=== PATIENT | female | born 1950 | race Caucasian/White ===

== ENCOUNTER 2016-06-07 01:31 | Emergency (ER) | payer OTHER ==
[2016-06-07 01:48] VITALS: TEMP 97.9
[2016-06-07 02:28] LABS: % IMMATURE GRANULYOCYTES 0.3 % (0.0-1.1); ABSOLUTE IMMATURE GRANULOCYTES 0.02 10^3/uL (0.00-0.10); ADD DIFF? NO; ADD MORPH? NO; ADD SCAN? NO; ATYPICAL LYMPHOCYTE FLAG 10 (0-99); FRAGMENT RBC FLAG 0 (0-99); HEMATOCRIT 40.8 % (38.0-47.0); HEMOGLOBIN 14.2 g/dL (12.6-16.3); LEFT SHIFT FLG 0 (0-99); LIPEMIA HEMOLYSIS FLAG 90 (0-99); MEAN CELL HEMOGLOBIN 32.6 pg (27.9-34.1); MEAN CELL HEMOGLOBIN CONCENTR. 34.8 g/dL (32.4-36.7); MEAN CELL VOLUME 93.6 fL (81.5-99.8); MEAN PLATELET VOLUME 10.1 fL (8.7-11.7); PLATELET CLUMPS FLAG 0 (0-99); PLATELET COUNT 243 10^3/uL (150-400); RED BLOOD CELL COUNT 4.36 10^6/uL (4.18-5.33); RED CELL DISTRIBUTION WIDTH 12.5 % (11.5-15.2)
--- NOTE | 2016-06-07 02:31 | CPEKG ---
Heart Rate: 78 RR Interval: 769 P-R Interval: 178 QRSD Interval: 94 QT Interval: 416 QTC Interval: 474 P [place]: 8 QRS [place]: -20 T Wave [place]: -4 EKG Severity - ABNORMAL ECG - EKG Impression: INCOMPLETE ANALYSIS DUE TO MISSING DATA IN PRECORDIAL LEAD(S) EKG Impression: SINUS RHYTHM EKG Impression: VENTRICULAR PREMATURE COMPLEX EKG Impression: LEFT VENTRICULAR HYPERTROPHY EKG Impression: NONSPECIFIC T ABNORMALITIES, INFERIOR LEADS Electronically Signed By: Franklin Worley 07-Jun-2016 06:56:00
[2016-06-07 02:33] LABS: ANION GAP 13 mEq/L (8-16); CALCIUM 10.1 mg/dL (8.5-10.4); CARBON DIOXIDE 27 mEq/l (22-31); CHLORIDE 103 mEq/L (97-110); CREATININE 0.6 mg/dL (0.6-1.0); GLOMERULAR FILTRATION RATE > 60; GLUCOSE 92 mg/dL (70-100); POTASSIUM 4.1 mEq/L (3.5-5.2); SODIUM 143 mEq/L (134-144)
[2016-06-07 02:45] LABS: TROPONIN I < 0.012 ng/mL (0-0.034)
[2016-06-07] MEDS ORDERED: LEVOTHYROXINE 137 MCG TAB PO ONE (03:08)
[2016-06-07] MEDS ORDERED: ATORVASTATIN CALCIUM 40 MG TAB PO ONE (03:09)
[2016-06-07] MEDS ORDERED: LOSARTAN/HCTZ 50/12.5 1 TAB PO ONE (03:09)
[2016-06-07] MEDS ORDERED: VENLAFAXINE XR 150 MG CAP PO ONE (03:11)
--- NOTE | 2016-06-07 03:15 | EDPHY ---
HPI/HX/ROS/PE/MDM Narrative: Chief complaint: Shakes, tremors, chest pain HPI: 66-year-old woman visiting from out of town has been feeling unwell for the last couple days. Patient states that she accidentally left her prescription medications at home anti lost before flying to waiting in [place] last weekend. Is been over 5 days since she has had her Synthroid, Lipitor, eyes are, and Effexor. She states she is feeling feeling increasingly agitated and tremulous this evening. Tonight she began feeling some vague discomfort in her chest, began feeling some spasms in her arms in some tremulousness. No fevers or chills. She is getting over an upper respiratory symptoms. No nausea or vomiting. No abdominal pain. No head injuries. Confusion. No headache. EMS gave her some IV Versed and she states she is feeling significantly improved and back to herself. She does drink occasional alcohol 1 glass of wine earlier this evening. She does not smoke. Denies any other drug use. Has not had any exertional chest pain or dyspnea. ROS: 10 point Review of Systems is negative except as noted in the HPI. Physical exam: Gen: Awake, Alert, No Distress HEENT: Nose: no rhinorrhea Eyes: PERRLA, EOMI Mouth: Moist mucosa Neck: Supple, no JVD Chest: nontender, lungs clear to auscultation Heart: S1, S2 normal, no murmur Abd: Soft, non-tender, no guarding Back: no CVA tenderness, no midline tenderness Ext: no edema, non-tender Skin: no rash Neuro: CN II-XII intact, Sensation grossly intact, Strength 5/5 in bilateral upper and lower extremities ED Course: EC sinus rhythm with a rate of 82. Normal axis, normal intervals, no acute ST or T-wave changes. Impression: Normal ECG Laboratory evaluations are unremarkable. New Patient continues refer [place] well. She feels her symptoms are likely secondary to medication withdrawal and I think that this is correct. She has ordered medications to be delivered to her inspecting the next couple of days. She will be in town until next week. I have given her a dose of her medications here. I have also given her a 7 day prescription should medications not her live in time. She will return for any worsening symptoms. There are no findings to suggest acute infection, coronary disease, neurologic process, or any other concerns. - Data Points Laboratory Results: Laboratory Results 06/07/16 02:00 06/07/16 02:00 06/07/16 02:00 WBC 6.46 10^3/uL (3.80-9.50) RBC 4.36 10^6/uL (4.18-5.33) Hgb 14.2 g/dL (12.6-16.3) Hct 40.8 % (38.0-47.0) MCV 93.6 fL (81.5-99.8) MCH 32.6 pg (27.9-34.1) MCHC 34.8 g/dL (32.4-36.7) RDW 12.5 % (11.5-15.2) Plt Count 243 10^3/uL (150-400) MPV 10.1 fL (8.7-11.7) Neut % (Auto) 42.6 % (39.3-74.2) Lymph % (Auto) 43.8 % (15.0-45.0) Frontier % (Auto) 9.3 % (4.5-13.0) Eos % (Auto) 2.8 % (0.6-7.6) Baso % (Auto) 1.2 % (0.3-1.7) Nucleat RBC Rel Count 0.0 % (0.0-0.2) Absolute Neuts (auto) 2.75 10^3/uL (1.70-6.50) Absolute Lymphs (auto) 2.83 10^3/uL (1.00-3.00) Absolute Monos (auto) 0.60 10^3/uL (0.30-0.80) Absolute Eos (auto) 0.18 10^3/uL (0.03-0.40) Absolute Basos (auto) 0.08 10^3/uL (0.02-0.10) Absolute Nucleated RBC 0.00 10^3/uL (0-0.01) Immature Gran % 0.3 % (0.0-1.1) Immature Gran # 0.02 10^3/uL (0.00-0.10) Sodium 143 mEq/L (134-144) Potassium 4.1 mEq/L (3.5-5.2) Chloride 103 mEq/L (97-110) Carbon Dioxide 27 mEq/l (22-31) Anion Gap 13 mEq/L (8-16) BUN 16 mg/dL (7-23) Creatinine 0.6 mg/dL (0.6-1.0) Estimated GFR > 60 Glucose 92 mg/dL (70-100) Calcium 10.1 mg/dL (8.5-10.4) Troponin I < 0.012 ng/mL (0-0.034) General Time Seen by Provider: 06/07/16 02:10 Initial Vital Signs: Initial Vital Signs Temperature (C) 36.6 C 06/07/16 01:43 Heart Rate 82 06/07/16 01:43 Respiratory Rate 18 06/07/16 01:43 Blood Pressure 149/90 H 06/07/16 01:43 O2 Sat (%) 94 06/07/16 01:43 O2 Delivery Mode Room Air Allergies/Adverse Reactions: Sulfa (Sulfonamide Antibiotics) Allergy (Verified 06/07/16 01:48) Home Medications: Medication Instructions Recorded Atorvastatin Calcium [Lipitor 40 40 mg PO DAILY #7 tab 06/07/16 mg (*)] Effexor 06/07/16 Estrogen,Marisol/Me-Testosterone 06/07/16 Hyzaar 100-12.5 Tablet 06/07/16 Levothyroxine Sodium [Synthroid] 137 mcg PO DAILY #7 tablet 06/07/16 Lipitor 40 mg (*) 06/07/16 Losartan/Hydrochlorothiazide 1 each PO DAILY #7 tablet 06/07/16 [Hyzaar 100-12.5 Tablet] Prevacid 06/07/16 Synthroid 06/07/16 Venlafaxine Xr [Effexor Xr] 150 mg PO DAILY #7 cap 06/07/16 Departure - Departure Disposition: Home, Routine, Self-Care Clinical Impression: Medication withdrawal Condition: Good Instructions: Tremors (ED) Additional Instructions: Your symptoms today are likely from the withdrawal from your usual medications. If you new medications do not arrive in the mail please fill the prescription provided today. Follow up with your doctor when she returns home to [place] next week. Return to the emergency department for any concerns. Referrals: OUT OF STATE,. [Primary Care Provider] - As per Instructions Prescriptions: Venlafaxine Xr [Effexor Xr] 150 mg PO DAILY #7 cap Losartan/Hydrochlorothiazide [Hyzaar 100-12.5 Tablet] 1 each PO DAILY #7 tablet Atorvastatin Calcium [Lipitor 40 mg (*)] 40 mg PO DAILY #7 tab Levothyroxine Sodium [Synthroid] 137 mcg PO DAILY #7 tablet
[2016-06-07 03:49] VITALS: BP 169/108; PULSE 72; RESP 16; O2SAT 96
--- NOTE | 2016-06-07 10:08 | CPEKG ---
Heart Rate: 82 RR Interval: 732 P-R Interval: 180 QRSD Interval: 96 QT Interval: 416 QTC Interval: 486 P [place]: 8 QRS [place]: -17 T Wave [place]: 3 EKG Severity - ABNORMAL ECG - EKG Impression: SINUS RHYTHM EKG Impression: PROBABLE LEFT VENTRICULAR HYPERTROPHY EKG Impression: BORDERLINE PROLONGED QT INTERVAL Electronically Signed For: Franklin Worley 07-Jun-2016 10:08:44
== END 2016-06-07 03:48 | disposition home or self-care (01) ==
LOC: EDBD 01:31
DX: F19.239 Other psychoactive substance dependence with withdrawal, unspecified (principal)